=== PATIENT | female | born 1970 ===

== ENCOUNTER 2017-01-27 15:05 | Emergency (ER) | payer MEDICAID, OTHER ==
[2017-01-27 15:05] VITALS: BMI 32.6
[2017-01-27 15:15] VITALS: BP 130/76; PULSE 88; RESP 18; TEMP 98; O2SAT 99
--- NOTE | 2017-01-27 15:25 | ED PDOC ---
Upper Extremity Pain/Injury Time Seen by Provider: 01/27/17 15:17 Chief Complaint (Nursing): Upper Extremity Problem/Injury Chief Complaint (Provider): Shoulder pain History Per: Patient History/Exam Limitations: no limitations Onset/Duration Of Symptoms: Days (x1 week) Current Symptoms Are (Timing): Still Present Additional Complaint(s): 46 y/o right hand dominant female presents to the emergency department with a complaint of a right shoulder pain x1 week. Patient states she was lifting a heavy bag and felt sharp pain to right shoulder last week. She did not seek medical attention at time of injury and presents today with persistent pain to right shoulder. She reports taking Naprosyn and Motrin which helped minimally with pain. She denies any numbness or tingling to affected area and she also denies any associated chest pain, shortness of breath and dyspnea on exertion. PMD: Dr. Salima Sharpe at [facility] Past Medical History Reviewed: Historical Data, Nursing Documentation, Vital Signs Vital Signs: Last Vital Signs Temp 98 F 01/27/17 15:13 Pulse 88 01/27/17 15:13 Resp 18 01/27/17 15:13 BP 130/76 01/27/17 15:13 Pulse Ox 99 01/27/17 15:13 - Medical History PMH: Anemia (iron def, anemia), Hypothyroidism, Seizures (2004; TAKES NO MED.; CAUSE UNKNOWN) - Surgical History Surgical History: Back Surgery, Endoscopy (6 YRS. AGO) Other surgeries: Total thyroidectomy, right knee surgery x 2, left knee surgery x 1 - Family History Family History: States: No Known Family Hx - Living Arrangements Living Arrangements: With Family - Social History Current smoker - smoking cessation education provided: No Alcohol: None Drugs: Denies - Home Medications Home Medications: Ambulatory Orders Medication Instructions Recorded Atenolol 09/14/16 oxyCODONE/Acetaminophen [Percocet 1 tab PO QID PRN #14 tab 09/14/16 5/325 mg Tab] Metaxalone [Skelaxin] 800 mg PO TID PRN #15 tablet 01/27/17 Nabumetone [Relafen] 500 mg PO BID #20 tab 01/27/17 traMADol [Ultram] 50 mg PO TID PRN #15 tab 01/27/17 - Allergies Allergies/Adverse Reactions: Allergies Allergy/AdvReac Type Severity Reaction Status Date / Time hydromorphone HCl Allergy SHORTNESS Verified 01/27/17 15:13 [From Dilaudid] OF BREATH Review of Systems ROS Statement: Except As Marked, All Systems Reviewed And Found Negative Constitutional: Negative for: Fever Cardiovascular: Negative for: Chest Pain Musculoskeletal: Positive for: Shoulder Pain (Right) Neurological: Negative for: Numbness (or tingling.) Physical Exam - Reviewed Nursing Documentation Reviewed: Yes Vital Signs Reviewed: Yes - Physical Exam Appears: Positive for: Well, Non-toxic, No Acute Distress Head Exam: Positive for: ATRAUMATIC, NORMAL INSPECTION, NORMOCEPHALIC Skin: Positive for: Normal Color. Negative for: Rash Eye Exam: Positive for: Normal appearance Neck: Positive for: Painless ROM. Negative for: Pain On Movement Of Neck Cardiovascular/Chest: Positive for: Regular Rate, Rhythm Respiratory: Positive for: Normal Breath Sounds. 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 ). Negative for: Deformity, Swelling Neurologic/Psych: Positive for: Alert, Oriented - ECG O2 Sat by Pulse Oximetry: 99 (RA) Pulse Ox Interpretation: Normal - Other Rad Right shoulder x-ray X-Ray: Interpreted by Me, Viewed By Me X-Ray Interpretation: no fx, no dis Medical Decision Making Medical Decision Making: Time: 15:17 Initial Impression: Right shoulder pain Initial Plan: --Toradol 30 mg IM --Shoulder Right (RAD) --Reevaluation Patient reports mild improvement to pain after toradol was given. X-ray negative for fracture or dislocation, sling applied to right arm. Rx tramadol, relafen and skelaxin given. Rx history reviewed on [facility] website and patient has not filled rx for narcotic pain meds since May 2016. Patient was instructed to follow up with PMD or with ortho in 2-3 days. Ortho referral provided. Scribe Attestation: Documented by Telma Reeder, acting as a scribe for Kristy Rascon PA-C. Provider Scribe Attestation: All medical record entries made by the Scribe were at my direction and personally dictated by me. I have reviewed the chart and agree that the record accurately reflects my personal performance of the history, physical exam, medical decision making, and the department course for this patient. I have also personally directed, reviewed, and agree with the discharge instructions and disposition. Procedures - Splinting Location: right arm Pre-Made Type: sling Pre-Proc Neuro Vasc Exam: normal Post-Proc Neuro Vasc Exam: normal Disposition - Clinical Impression Clinical Impression: Shoulder sprain - Patient ED Disposition Is Patient to be Admitted: No Counseled Patient/Family Regarding: Studies Performed, Diagnosis, Need For Followup, Rx Given - Disposition Referrals: Hardeep Rdz MD [Staff Provider] - Disposition: Routine/Home Disposition Time: 16:03 Condition: STABLE Additional Instructions: Ice and rest the affected area. Take prescription meds as directed as needed for pain. Follow-up with orthopedist or primary care doctor for further evaluation. Prescriptions: Metaxalone [Skelaxin] 800 mg PO TID PRN #15 tablet PRN Reason: Muscle Pain Nabumetone [Relafen] 500 mg PO BID #20 tab traMADol [Ultram] 50 mg PO TID PRN #15 tab PRN Reason: Pain, Moderate (4-7) Instructions: Shoulder Sprain (ED)
--- NOTE | 2017-01-27 15:58 | RAD ---
PROCEDURE: Radiographs of the Right Shoulder HISTORY: trauma COMPARISON: No prior. FINDINGS: BONES: Normal. No fracture. JOINTS: Preserved glenohumeral relationship, acromioclavicular degenerative change: Mild SOFT TISSUES: Normal. OTHER FINDINGS: None. IMPRESSION: No acute findings related to/accounting for the clinical presentation. Concordant results with the preliminary interpretation rendered by the emergency department physician procedure.
== END 2017-01-27 16:17 | disposition home or self-care (01) ==
LOC: H.ER 15:05
DX: S43.401A Unspecified sprain of right shoulder joint, initial encounter (principal); X50.0XXA Overexertion from strenuous movement or load, initial encounter; Y92.89 Other specified places as the place of occurrence of the external cause

== ENCOUNTER 2017-05-11 21:54 | Emergency (ER) | payer OTHER, MEDICAID ==
[2017-05-11 21:55] VITALS: BMI 32.6
[2017-05-11 22:07] VITALS: BP 144/88; PULSE 98; RESP 16; TEMP 98.4; O2SAT 100
--- NOTE | 2017-05-11 22:42 | ED PDOC ---
Lower Extremity Pain/Injury Time Seen by Provider: 05/11/17 22:05 Chief Complaint (Nursing): Lower Extremity Problem/Injury Chief Complaint (Provider): left foot and ankle pain History Per: Patient Additional Complaint(s): 46-year-old female presents to emergency Department with left foot and ankle pain status post twisting injury. Patient able to bear weight but has pain when doing so. Patient states that injury occurred while she was at work this evening. She denies numbness or tingling to affected area. Past Medical History Reviewed: Historical Data, Nursing Documentation, Vital Signs Vital Signs: Last Vital Signs Temp 98.4 F 05/11/17 22:01 Pulse 98 H 05/11/17 22:01 Resp 16 05/11/17 22:01 BP 144/88 05/11/17 22:01 Pulse Ox 100 05/11/17 22:01 - Medical History PMH: Anemia (iron def, anemia), Diabetes ("borderline"), Hyperthyroidism ( "borderline"), Seizures (2004; TAKES NO MED.; CAUSE UNKNOWN) Other PMH: Lupus - Surgical History Surgical History: Back Surgery, Endoscopy (6 YRS. AGO) - Family History Family History: States: No Known Family Hx - Social History Current smoker - smoking cessation education provided: No Alcohol: Social Drugs: Denies - Home Medications Home Medications: Ambulatory Orders Medication Instructions Recorded Atenolol 09/14/16 oxyCODONE/Acetaminophen [Percocet 1 tab PO QID PRN #14 tab 09/14/16 5/325 mg Tab] Metaxalone [Skelaxin] 800 mg PO TID PRN #15 tablet 01/27/17 Nabumetone [Relafen] 500 mg PO BID #20 tab 01/27/17 traMADol [Ultram] 50 mg PO TID PRN #15 tab 01/27/17 - Allergies Allergies/Adverse Reactions: Allergies Allergy/AdvReac Type Severity Reaction Status Date / Time hydromorphone HCl Allergy SHORTNESS Verified 05/11/17 22:01 [From Dilaudid] OF BREATH Review of Systems ROS Statement: Except As Marked, All Systems Reviewed And Found Negative Musculoskeletal: Positive for: Other (Left foot and ankle injury) Physical Exam - Reviewed Nursing Documentation Reviewed: Yes Vital Signs Reviewed: Yes - Physical Exam Appears: Positive for: Well Skin: Negative for: Rash Eye Exam: Positive for: Normal appearance Extremity: Positive for: Other (Mild tenderness to medial aspect of the left foot as well as lateral malleolus of left ankle, no obvious bony deformity, palpable DP pulse, normal distal sensation, normal capillary refill) Neurologic/Psych: Positive for: Alert, Oriented - ECG O2 Sat by Pulse Oximetry: 100 Pulse Ox Interpretation: Normal - Other Rad Left foot and ankle x-ray X-Ray: Interpreted by Me, Viewed By Me X-Ray Interpretation: no fx, no dis Medical Decision Making Medical Decision Makin46 year old with left foot and ankle pain Plan: Pain meds declined X-ray left foot and ankle Patient aware of x-ray results. Cultures were declined. Robert wrap, Aircast and orthopedic shoe applied to left foot and ankle, neurovascularly intact status post placement. Patient given RICE instructions and advised to take NSAIDs for pain as needed, she was referred to podiatry on-call for follow-up. Disposition - Clinical Impression Clinical Impression: Ankle sprain, Foot sprain - Patient ED Disposition Is Patient to be Admitted: No Counseled Patient/Family Regarding: Studies Performed, Diagnosis, Need For Followup - Disposition Referrals: Baudilio Monaco DPM [Doctor Pod[facility]] - Disposition: Routine/Home Disposition Time: 23:02 Condition: STABLE Additional Instructions: Ice and elevate affected area. Tylenol or Advil for pain as needed. 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 Instructions: Foot Sprain (ED), Ankle Sprain (ED), Ankle Stirrup Splint (ED) Forms: [employer] (Japanese), [facility] ED School/Work Excuse
--- NOTE | 2017-05-12 11:52 | RAD ---
PROCEDURE: Left Ankle Radiographs. HISTORY: Trauma. Anatomic area of interest: Lateral malleolar region. COMPARISON: None FINDINGS: BONES: Normal. No fracture. JOINTS: Normal. No osteoarthritis. Ankle mortise maintained. Talar dome intact SOFT TISSUES: Normal. OTHER FINDINGS: None. IMPRESSION: No acute findings related to/accounting for the clinical presentation. No preliminary report provided by emergency department personnel.
--- NOTE | 2017-05-12 12:15 | RAD ---
PROCEDURE: Left Foot Radiographs. HISTORY: trauma COMPARISON: None. FINDINGS: BONES: Normal. No fracture. JOINTS: Normal. SOFT TISSUES: Normal. OTHER FINDINGS: None. IMPRESSION: Normal left foot radiographs.
== END 2017-05-11 23:06 | disposition home or self-care (01) ==
LOC: H.ER 21:54
DX: S93.402A Sprain of unspecified ligament of left ankle, initial encounter (principal); X50.9XXA Other and unspecified overexertion or strenuous movements or postures, initial encounter; Y92.89 Other specified places as the place of occurrence of the external cause

== ENCOUNTER 2017-09-24 18:46 | Emergency (ER) | payer MEDICAID, OTHER ==
[2017-09-24 19:08] VITALS: BMI 33.4
[2017-09-24 19:12] VITALS: BP 148/89; PULSE 96; RESP 16; TEMP 98.5; O2SAT 99
[2017-09-24] MEDS ORDERED: Sodium Chloride 0.9% 1,000 ML IV STA (20:00)
--- NOTE | 2017-09-24 20:59 | ED PDOC ---
HPI: Abdomen Time Seen by Provider: 09/24/17 19:48 Chief Complaint (Nursing): Abdominal Pain Chief Complaint (Provider): abdominal pain History Per: Patient History/Exam Limitations: no limitations Onset/Duration Of Symptoms: Sudden Onset Current Symptoms Are (Timing): Still Present Additional Complaint(s): 47 year old female with medical history of colitis, who presents to the emergency department with a complaint of sudden onset of left lower abdominal pain radiating to right upper abdomen. Denied any fever, chills, nausea, vomiting, diarrhea, constipation, difficulty urinating, bloody urine or incontinence, vaginal bleeding. PMD: Gray Bradley MD Past Medical History Reviewed: Historical Data, Nursing Documentation, Vital Signs Vital Signs: Last Vital Signs Temp 98.5 F 09/24/17 19:09 Pulse 96 H 09/24/17 19:09 Resp 16 09/24/17 19:09 BP 148/89 09/24/17 19:09 Pulse Ox 99 09/24/17 23:59 - Medical History PMH: Anemia (iron def, anemia), Bronchitis (2013), Colonic Polyps, Diabetes ("borderline"), Hyperthyroidism ("borderline"), Hypothyroidism, Seizures (2004; TAKES NO MED.; CAUSE UNKNOWN) Denies: Chronic Kidney Disease - Surgical History Surgical History: Back Surgery, Endoscopy (6 YRS. AGO) - Family History Family History: States: Unknown Family Hx - Social History Current smoker - smoking cessation education provided: No Alcohol: None Drugs: Denies - Immunization History Hx Tetanus Toxoid Vaccination: No Hx Influenza Vaccination: No Hx Pneumococcal Vaccination: No - Home Medications Home Medications: Ambulatory Orders Medication Instructions Recorded Atenolol 09/14/16 oxyCODONE/Acetaminophen [Percocet 1 tab PO QID PRN #14 tab 09/14/16 5/325 mg Tab] Metaxalone [Skelaxin] 800 mg PO TID PRN #15 tablet 01/27/17 Nabumetone [Relafen] 500 mg PO BID #20 tab 01/27/17 traMADol [Ultram] 50 mg PO TID PRN #15 tab 01/27/17 Naproxen [Naprosyn] 500 mg PO BID PRN #30 tab 09/24/17 - Allergies Allergies/Adverse Reactions: Allergies Allergy/AdvReac Type Severity Reaction Status Date / Time hydromorphone HCl Allergy SHORTNESS Verified 09/24/17 19:08 [From Dilaudid] OF BREATH Review of Systems ROS Statement: Except As Marked, All Systems Reviewed And Found Negative Constitutional: Negative for: Fever, Chills Gastrointestinal: Positive for: Abdominal Pain (LLQ > RUQ). Negative for: Nausea, Vomiting, Diarrhea, Constipation Genitourinary Female: Negative for: Dysuria, Incontinence, Hematuria Physical Exam - Reviewed Nursing Documentation Reviewed: Yes Vital Signs Reviewed: Yes - Physical Exam Appears: Positive for: Non-toxic, No Acute Distress Respiratory: Positive for: Normal Breath Sounds. Negative for: Decreased Breath Sounds, Respiratory Distress Gastrointestinal/Abdominal: Positive for: Tenderness (LLQ moderately; LUQ minimally). Negative for: Normal Exam, Other (RUQ tenderness, ecchymosis or Armendariz's sign present) Neurologic/Psych: Positive for: Alert, Oriented - Laboratory Results Result Diagrams: 09/24/17 21:17 09/24/17 21:17 - ECG O2 Sat by Pulse Oximetry: 99 (RA) Pulse Ox Interpretation: Normal - Progress ED Course And Treament: CT abd/pelvis w/ IV contrast: 1. Involuting or ruptured LEFT ovarian follicle/ cyst. 2. Apparent dilatation of common bile duct. Suggest ultrasound Case d/w Dr. Gloria who states pt. can f/u with ACCOUNTING OFFICE MANAGER and PMD for further testing. On re-evaluation, pt. reports good improvement in pain. Lab and imaging results d/w patient. Instructed to f/u with ACCOUNTING OFFICE MANAGER for ovarian cyst and with PMD for outpatient RUQ US but is to return to ED immediately if symptoms worsen. Pt. verbalized understanding of necessary f/u to PA. Medical Decision Making Medical Decision Making: Initial Impression: Abdominal pain Initial Plan: * CT ABD/pelvis with IV contrast * CMP * Lipase * Urine * CBC * NS 1,000ml IV per 1,000mls/hr * Toradol 30mg IVP * Blood culture * UA Scribe Attestation: Documented by Bere Mcbride, acting as a scribe for Ganesh Rose PA-C. Provider Scribe Attestation: All medical record entries made by the Scribe were at my direction and personally dictated by me. I have reviewed the chart and agree that the record accurately reflects my personal performance of the history, physical exam, medical decision making, and the department course for this patient. I have also personally directed, reviewed, and agree with the discharge instructions and disposition. Disposition - Clinical Impression Clinical Impression: Ovarian cyst, Common bile duct dilatation - Patient ED Disposition Is Patient to be Admitted: No - Disposition [facility] [Outside] Disposition: Routine/Home Disposition Time: 23:22 Condition: STABLE Additional Instructions: Follow up with ACCOUNTING OFFICE MANAGER and PMD for further evaluation. Return to ED immediately if symptoms persist or worsen. Prescriptions: Naproxen [Naprosyn] 500 mg PO BID PRN #30 tab PRN Reason: Pain Instructions: Ovarian Cyst (ED) Forms: [employer] (Somali) Print Language: [place]
[2017-09-24] MEDS ORDERED: Sodium Chloride 0.9% 50 ML IV ONE (21:10)
[2017-09-24] MEDS ORDERED: Iohexol 300 100 ML IJ ONE (21:10)
[2017-09-24 21:21] LABS: BASO # 0.2 K/uL (0.0-0.2); BASO % 1.2 % (0.0-2.0); EOS # 0.1 K/uL (0.0-0.7); EOS % 0.8 % (0.0-4.0); HEMOGLOBIN 13.2 g/dL (12.0-16.0); LYMPH # 3.6 K/uL (1.0-4.3); LYMPH % 26.8 % (20.0-40.0); MEAN CELL VOLUME 81.8 fl (81.0-99.0); MEAN CORPUSCULAR HEMOGLOBIN 26.2 pg (27.0-31.0); MEAN PLATELET VOLUME 8.7 fl (7.2-11.7); MONO # 0.9 K/uL (0.0-0.8); MONO % 6.8 % (0.0-10.0); NEUT # 8.7 K/uL (1.8-7.0); NEUT % 64.4 % (50.0-75.0); NRBC % 0.1 % (0.0-0.0); RBC 5.02 Mil/uL (3.80-5.20); RED CELL DISTRIBUTION WIDTH 16.5 % (11.5-14.5); WHITE BLOOD COUNT 13.5 K/uL (4.8-10.8)
[2017-09-24 21:35] LABS: ALB/GLOB RATIO 1.4 (1.0-2.1); ALBUMIN 4.2 g/dL (3.5-5.0); ALT/SGPT 32 U/L (9-52); AST/SGOT 21 U/L (14-36); BLOOD UREA NITROGEN 11 mg/dl (7-17); CALCIUM 9.2 mg/dL (8.4-10.2); GFR AFRICAN-AMERICAN > 60; GFR NON-AFRICAN AMERICAN > 60; LIPASE 24 U/L (23-300)
[2017-09-24 21:45] LABS: URINE BILIRUBIN NEGATIVE (NEGATIVE); URINE CLARITY CLEAR (Clear); URINE COLOR YELLOW (YELLOW); URINE GLUCOSE (UA) NEG (Normal)
[2017-09-24 21:46] LABS: PH,URINE 5.5 (5.0-8.0); SQUAMOUS EPITHIAL 1 /hpf (0-5); URINE BACTERIA RARE (<OCC); URINE BLOOD NEGATIVE (NEGATIVE); URINE LEUKOCYTE ESTERASE NEG Leu/uL (Negative); URINE NITRATE NEGATIVE (NEGATIVE); URINE PROTEIN NEGATIVE (NEGATIVE); URINE UROBILINOGEN 0.2 mg/dL (0.2-1.0)
--- NOTE | 2017-09-24 23:07 | CT ---
EXAM: CT Abdomen and Pelvis With Intravenous Contrast CLINICAL HISTORY: 47 years old, female; Pain; Abdominal pain; Localized; Other: Lt to right pain; Additional info: L sided abdominal pain TECHNIQUE: Axial computed tomography images of the abdomen and pelvis with intravenous contrast. All CT scans at this facility use one or more dose reduction techniques, viz.: automated exposure control; ma/kV adjustment per patient size (including targeted exams where dose is matched to indication; i.e. head); or iterative reconstruction technique. Coronal and sagittal reformatted images were created and reviewed. CONTRAST: 95 mL of [id number] administered intravenously. COMPARISON: No relevant prior studies available. FINDINGS: Lower thorax: No acute findings. ABDOMEN: Liver: Fatty infiltration. Small calcification. Gallbladder and bile ducts: No calcified gallstones. Apparent dilatation of common bile duct, up to 1.0 cm. Pancreas: No ductal dilation. No mass. Spleen: Mild splenomegaly, AP dimension. Adrenals: No mass. Kidneys and ureters: No hydronephrosis. No mass. No hydronephrosis. Stomach and bowel: No definite mural thickening. No obstruction. Appendix: Normal caliber. No definite inflammation. PELVIS: Bladder: Unremarkable. Reproductive: 1.0 x 1.1 by 1.3 cm peripherally enhancing hypodensity with crenulated margins within LEFT ovary. ABDOMEN and PELVIS: Intraperitoneal space: No significant fluid collection. No free air. Bones/joints: Postsurgical changes of lumbar spine. Early degenerative changes of spine. No acute fracture. Soft tissues: Small umbilical hernia containing fat. Vasculature: Circumaortic LEFT renal vein. No aneurysm. Lymph nodes: No pathologically enlarged lymph nodes. IMPRESSION: 1. Involuting or ruptured LEFT ovarian follicle/cyst. 2. Apparent dilatation of common bile duct. Suggest ultrasound. 3. Incidental/non-acute findings are described above.
== END 2017-09-24 23:30 | disposition home or self-care (01) ==
LOC: H.ER 18:46
DX: N83.202 Unspecified ovarian cyst, left side (principal); E03.9 Hypothyroidism, unspecified; E05.90 Thyrotoxicosis, unspecified without thyrotoxic crisis or storm
CPT/HCPCS: 74177; 80053; 81003; 81025; 83690; 85025; 87040; 96374; 99283; J1885; J7040; Q9967

== ENCOUNTER 2018-07-04 11:34 | Emergency (ER) | payer BC, MEDICAID, OTHER ==
[2018-07-04 11:34] VITALS: BMI 33.4
[2018-07-04 11:46] VITALS: RESP 18; TEMP 97.7
[2018-07-04] MEDS ORDERED: Sodium Chloride 0.9% 500 ML IV STA (13:10)
[2018-07-04 13:18] LABS: BASO # 0.1 K/uL (0.0-0.2); BASO % 0.8 % (0.0-2.0); EOS # 0.1 K/uL (0.0-0.7); EOS % 0.7 % (0.0-4.0); HEMOGLOBIN 12.7 g/dL (12.0-16.0); LYMPH # 2.4 K/uL (1.0-4.3); MEAN CELL VOLUME 80.9 fl (81.0-99.0); MEAN CORPUSCULAR HEMOGLOBIN 25.6 pg (27.0-31.0); MEAN CORPUSCULAR HGB CONC 31.6 g/dL (33.0-37.0); MEAN PLATELET VOLUME 8.8 fl (7.2-11.7); MONO # 0.7 K/uL (0.0-0.8); MONO % 6.5 % (0.0-10.0); NEUT # 6.9 K/uL (1.8-7.0); NRBC % 0.1 % (0.0-0.0); RBC 4.99 Mil/uL (3.80-5.20); RED CELL DISTRIBUTION WIDTH 19.3 % (11.5-14.5); SQUAMOUS EPITHIAL 3 /hpf (0-5); URINE BILIRUBIN NEGATIVE (NEGATIVE); URINE BLOOD NEGATIVE (NEGATIVE); URINE CLARITY CLOUDY (Clear); URINE COLOR YELLOW (YELLOW); URINE GLUCOSE (UA) NEG (Normal); URINE LEUKOCYTE ESTERASE NEG Leu/uL (Negative); URINE PROTEIN NEGATIVE (NEGATIVE); WHITE BLOOD COUNT 10.1 K/uL (4.8-10.8)
--- NOTE | 2018-07-04 13:22 | ED PDOC ---
HPI: General Adult Time Seen by Provider: 07/04/18 12:06 Chief Complaint (Nursing): Dizziness/Lightheaded Chief Complaint (Provider): Dizziness History Per: Patient History/Exam Limitations: no limitations Additional Complaint(s): Pt reports lightheadedness since this AM. Pt had thyroidectomy on 06/23/18 secondary to thyroid CA. Denies fever, TREVIZO, visual changes, paresthesias, weakness. Take Synthroid 150 mcg daily. Past Medical History Reviewed: Nursing Documentation, Vital Signs Vital Signs: Last Vital Signs Temp 97.7 F 07/04/18 11:46 Pulse 87 07/04/18 11:46 Resp 18 07/04/18 11:46 BP 158/105 H 07/04/18 11:46 Pulse Ox 100 07/04/18 11:46 - Medical History PMH: Anemia (iron def, anemia), Bronchitis (2013), Colonic Polyps, Diabetes ("borderline"), Hyperthyroidism ("borderline"), Hypothyroidism, Malignancy (Thyroid), Seizures (2004; TAKES NO MED.; CAUSE UNKNOWN) Denies: Chronic Kidney Disease - Surgical History Surgical History: Back Surgery, Endoscopy (6 YRS. AGO) Other surgeries: Thyroidectomy - Family History Family History: States: Unknown Family Hx - Social History Current smoker - smoking cessation education provided: No Alcohol: None - Immunization History Hx Tetanus Toxoid Vaccination: No Hx Influenza Vaccination: Yes Hx Pneumococcal Vaccination: No - Home Medications Home Medications: Ambulatory Orders Medication Instructions Recorded Ciprofloxacin [Cipro] 1 tab PO BID #14 tab 12/24/17 Phentermine HCl 1 tab DAILY 12/24/17 Meclizine [Meclizine*] 25 mg PO Q6 PRN #20 tab 07/04/18 - Allergies Allergies/Adverse Reactions: Allergies Allergy/AdvReac Type Severity Reaction Status Date / Time ciprofloxacin [From Cipro] Allergy ANAPHYLAXIS Verified 07/04/18 11:58 hydromorphone HCl Allergy SHORTNESS Verified 07/04/18 11:58 [From Dilaudid] OF BREATH Review of Systems Constitutional: Negative for: Fever, Chills Eyes: Negative for: Vision Change Cardiovascular: Negative for: Chest Pain, Palpitations Respiratory: Negative for: Cough, Shortness of Breath Gastrointestinal: Positive for: Abdominal Pain. Negative for: Nausea, Vomiting, Diarrhea Genitourinary Female: Negative for: Dysuria, Hematuria Musculoskeletal: Negative for: Back Pain Skin: Negative for: Rash, Lesions Neurological: Positive for: Dizziness. Negative for: Weakness, Numbness, Incoordination, Change in Speech, Confusion, Seizures, Altered Mental Status, Headache Physical Exam - Reviewed Nursing Documentation Reviewed: Yes Vital Signs Reviewed: Yes - Physical Exam Appears: Positive for: Well, No Acute Distress Head Exam: Positive for: ATRAUMATIC, NORMAL INSPECTION Skin: Positive for: Normal Color, Warm, Dry Eye Exam: Positive for: Normal appearance, EOMI, PERRL Cardiovascular/Chest: Positive for: Regular Rate, Rhythm Respiratory: Positive for: Normal Breath Sounds. Negative for: Rales, Rhonchi, Wheezing Gastrointestinal/Abdominal: Positive for: Bowel Sounds, Soft, Tenderness (Minimal L). Negative for: Distended, Guarding, Rebound Back: Positive for: Normal Inspection Extremity: Positive for: Normal ROM Neurologic/Psych: Positive for: Alert, fountain helper II-XII, Oriented. Negative for: Motor/Sensory Deficits, Aphasia, Facial Droop - Laboratory Results Result Diagrams: 07/04/18 13:00 07/04/18 13:00 - ECG Interpretation Of ECG: NSR @ 69, no ST-T changes. O2 Sat by Pulse Oximetry: 100 Pulse Ox Interpretation: Normal - Physician Consult Information Time Consulting Physican Contacted: 16:06 Physician Contacted: Bere Coleman Outcome Of Conversation: Case discussed, states the lower the TSH the better in context of thyroid CA, recommends no change in Synthroid. Medical Decision Making Medical Decision Makin yo female with dizziness. - labs - EKG - CXR - IVF - orthostatics Accession No. : [id number] Patient Name / ID : AUSTIN ANDERSEN / [id number] Exam Date : 07/04/2018 15:18:31 ( Approved ) Study Comment : Sex / Age : F / 47Y Creator : Jose Valenzuela MD Dictator : Jose Valenzuela MD Burglary Investigator : Dormitory Supervisor : Jose Valenzuela MD Approver2 : Report Date : 07/04/2018 15:42:44 My Comment : Date of service: 07/04/2018 PROCEDURE: CT HEAD WITHOUT CONTRAST. HISTORY: Dizziness COMPARISON: None available. TECHNIQUE: Axial computed tomography images were obtained through the head/brain without intravenous contrast. Supplemental Coronal and Sagittal projections created and reviewed. Radiation dose: Total exam DLP = 896.40 mGy-cm. This CT exam was performed using one or more of the following dose reduction techniques: Automated exposure control, adjustment of the mA and/or kV according to patient size, and/or use of iterative reconstruction technique. FINDINGS: HEMORRHAGE: No intracranial hemorrhage. BRAIN: No mass effect or edema. No atrophy or chronic microvascular ischemic changes. VENTRICLES: Unremarkable. No hydrocephalus. CALVARIUM: Unremarkable. PARANASAL SINUSES: Unremarkable as visualized. No significant inflammatory changes. MASTOID AIR CELLS: Unremarkable as visualized. No inflammatory changes. OTHER FINDINGS: None. IMPRESSION: No acute intracranial abnormalities. No significant findings to account for the clinical presentation. Accession No. : [id number] Patient Name / ID : AUSTIN ANDERSEN / [id number] Exam Date : 07/04/2018 15:23:32 ( Approved ) Study Comment : Sex / Age : F / 47Y Creator : Jose Valenzuela MD Dictator : Jose Valenzuela MD Burglary Investigator : Dormitory Supervisor : Jose Valenzuela MD Approver2 : Report Date : 07/04/2018 15:47:11 My Comment : Date of service: 07/04/2018 PROCEDURE: CT Abdomen and Pelvis with contrast HISTORY: L sided abd pain COMPARISON: 09/24/2017. TECHNIQUE: Intravenous contrast dose: 95 cc Omnipaque 300. Radiation dose: Total exam DLP = 885.0 mGy-cm. This CT exam was performed using one or more of the following dose reduction techniques: Automated exposure control, adjustment of the mA and/or kV according to patient size, and/or use of iterative reconstruction technique. FINDINGS: LOWER THORAX: Unremarkable. LIVER: Unremarkable. No gross lesion or ductal dilatation. GALLBLADDER AND BILE DUCTS: Unremarkable. PANCREAS: Unremarkable. No gross lesion or ductal dilatation. SPLEEN: Unremarkable. ADRENALS: Unremarkable. No mass. KIDNEYS AND URETERS: Unremarkable. No hydronephrosis. No solid mass. VASCULATURE: Unremarkable. No aortic aneurysm. No atherosclerotic calcification or mural plaque present. BOWEL: Unremarkable. No obstruction. No gross mural thickening. APPENDIX: A normal appendix is visualized in it's entirety. PERITONEUM: Unremarkable. No free fluid. No free air. LYMPH NODES: Unremarkable. No enlarged lymph nodes. BLADDER: Unremarkable. REPRODUCTIVE: Unremarkable. BONES: No acute fracture. Stable position, configuration of orthopedic hardware L5-S1 region. OTHER FINDINGS: None. IMPRESSION: No significant or acute findings to account for/ related to the clinical presentation. No significant interval change compared to the prior examination (s). Pt able to ambulate without difficulty. Disposition - Clinical Impression Clinical Impression: Dizziness - Disposition Disposition: Routine/Home Disposition Time: 16:09 Condition: STABLE Additional Instructions: FOLLOW-UP WITH PMD WITHIN 2 DAYS FOR REEVALUATION. Prescriptions: Meclizine [Meclizine*] 25 mg PO Q6 PRN #20 tab PRN Reason: Dizziness Instructions: Dizziness, Nonvertigo, (DC) Forms: [employer] (Bengali)
[2018-07-04 13:36] LABS: ALB/GLOB RATIO 1.3 (1.0-2.1)
[2018-07-04 14:09] LABS: BLOOD UREA NITROGEN 13 mg/dl (7-17); CALCIUM 9.5 mg/dL (8.4-10.2); GFR NON-AFRICAN AMERICAN > 60
[2018-07-04 14:10] LABS: ALBUMIN 4.5 g/dL (3.5-5.0); ALT/SGPT 55 U/L (9-52); AST/SGOT 29 U/L (14-36)
[2018-07-04] MEDS ORDERED: Sodium Chloride 0.9% 50 ML IV ONE (15:03)
[2018-07-04] MEDS ORDERED: Iohexol 300 100 ML IJ ONE (15:03)
--- NOTE | 2018-07-04 15:46 | CT ---
Date of service: 07/04/2018 PROCEDURE: CT HEAD WITHOUT CONTRAST. HISTORY: Dizziness COMPARISON: None available. TECHNIQUE: Axial computed tomography images were obtained through the head/brain without intravenous contrast. Supplemental Coronal and Sagittal projections created and reviewed. Radiation dose: Total exam DLP = 896.40 mGy-cm. This CT exam was performed using one or more of the following dose reduction techniques: Automated exposure control, adjustment of the mA and/or kV according to patient size, and/or use of iterative reconstruction technique. FINDINGS: HEMORRHAGE: No intracranial hemorrhage. BRAIN: No mass effect or edema. No atrophy or chronic microvascular ischemic changes. VENTRICLES: Unremarkable. No hydrocephalus. CALVARIUM: Unremarkable. PARANASAL SINUSES: Unremarkable as visualized. No significant inflammatory changes. MASTOID AIR CELLS: Unremarkable as visualized. No inflammatory changes. OTHER FINDINGS: None. IMPRESSION: No acute intracranial abnormalities. No significant findings to account for the clinical presentation.
--- NOTE | 2018-07-04 15:50 | CT ---
Date of service: 07/04/2018 PROCEDURE: CT Abdomen and Pelvis with contrast HISTORY: L sided abd pain COMPARISON: 09/24/2017. TECHNIQUE: Intravenous contrast dose: 95 cc Omnipaque 300. Radiation dose: Total exam DLP = 885.0 mGy-cm. This CT exam was performed using one or more of the following dose reduction techniques: Automated exposure control, adjustment of the mA and/or kV according to patient size, and/or use of iterative reconstruction technique. FINDINGS: LOWER THORAX: Unremarkable. LIVER: Unremarkable. No gross lesion or ductal dilatation. GALLBLADDER AND BILE DUCTS: Unremarkable. PANCREAS: Unremarkable. No gross lesion or ductal dilatation. SPLEEN: Unremarkable. ADRENALS: Unremarkable. No mass. KIDNEYS AND URETERS: Unremarkable. No hydronephrosis. No solid mass. VASCULATURE: Unremarkable. No aortic aneurysm. No atherosclerotic calcification or mural plaque present. BOWEL: Unremarkable. No obstruction. No gross mural thickening. APPENDIX: A normal appendix is visualized in it's entirety. PERITONEUM: Unremarkable. No free fluid. No free air. LYMPH NODES: Unremarkable. No enlarged lymph nodes. BLADDER: Unremarkable. REPRODUCTIVE: Unremarkable. BONES: No acute fracture. Stable position, configuration of orthopedic hardware L5-S1 region. OTHER FINDINGS: None. IMPRESSION: No significant or acute findings to account for/ related to the clinical presentation. No significant interval change compared to the prior examination(s).
--- NOTE | 2018-07-04 16:18 | CARD ---
APPROVED REPORT Date of service: 07/04/2018 EKG Measurement Heart [id number] OR 168P4 [id number] <Conclusion> Normal sinus rhythm Minimal voltage criteria for LVH, may be normal variant Borderline ECG
[2018-07-05 01:10] VITALS: BP 137/84; PULSE 80
[2018-07-06 10:31] VITALS: O2SAT 100
== END 2018-07-04 18:00 | disposition home or self-care (01) ==
LOC: H.ER 11:34
DX: R42 Dizziness and giddiness (principal); C73 Malignant neoplasm of thyroid gland; E03.9 Hypothyroidism, unspecified; E05.90 Thyrotoxicosis, unspecified without thyrotoxic crisis or storm
CPT/HCPCS: 70450; 74177; 80053; 81003; 81025; 84443; 85025; 93005; 99284; J7030; Q9967

== ENCOUNTER 2018-10-16 08:28 | Emergency (ER) | payer BC, MEDICAID, OTHER ==
[2018-10-16 08:28] VITALS: BMI 33.4
--- NOTE | 2018-10-16 09:11 | ED PDOC ---
HPI: General Adult Time Seen by Provider: 10/16/18 08:44 Chief Complaint (Nursing): Dizziness/Lightheaded Chief Complaint (Provider): Dizziness/Lightheaded History Per: Patient History/Exam Limitations: no limitations Onset/Duration Of Symptoms: Days (x2) Additional Complaint(s): Patient is a 48 y/o female with a PMHx of diabetes, vertigo, anemia, bronchitis, colonic polyps, CHF, hyperthyroidism, hypothyroidism, malignancy, and seizures who presents to the ED for evaluation dizziness ongoing for the past two days. Patient states she woke up this morning feeling dizzy and with palpitations after sleeping on her chest, thus, prompting her ED visit. Patient states her dizziness is exacerbated by laying on her back claiming she feels like the "room is spinning." In addition, patient admits to headaches and nausea. Patient denies loss of appetite, vomiting, and diarrhea. PCP: None Provided Past Medical History Reviewed: Historical Data, Nursing Documentation, Vital Signs Vital Signs: Last Vital Signs Temp 98.4 F 10/16/18 08:29 Pulse 59 L 10/16/18 08:29 Resp 18 10/16/18 08:29 BP 120/85 10/16/18 08:29 Pulse Ox 100 10/16/18 08:29 - Medical History PMH: Anemia (iron def, anemia), Bronchitis (2013), CHF, Colonic Polyps, Diabetes ("borderline"), Hyperthyroidism ("borderline"), Hypothyroidism, Malignancy (Thyroid), Seizures (after anesthesia) Denies: Chronic Kidney Disease - Surgical History Surgical History: Back Surgery, Endoscopy (6 YRS. AGO) - Family History Family History: States: Unknown Family Hx - Social History Current smoker - smoking cessation education provided: No Alcohol: Social Drugs: Denies - Immunization History Hx Tetanus Toxoid Vaccination: No Hx Influenza Vaccination: Yes Hx Pneumococcal Vaccination: No - Home Medications Home Medications: Ambulatory Orders Medication Instructions Recorded Levothyroxine [Synthroid] 150 mcg PO DAILY 08/26/18 Acetaminophen [Tylenol 325mg tab] 650 mg PO Q6 PRN tab 08/30/18 Aspirin [Ecotrin] 81 mg PO DAILY #30 tabec 08/30/18 Carvedilol [Coreg] 3.125 mg PO BID #60 tab 08/30/18 Losartan [Cozaar] 25 mg PO DAILY #30 tab 08/30/18 Rosuvastatin Calcium [Crestor] 20 mg PO HS #30 tab 08/30/18 - Allergies Allergies/Adverse Reactions: Allergies Allergy/AdvReac Type Severity Reaction Status Date / Time ciprofloxacin [From Cipro] Allergy ANAPHYLAXIS Verified 08/26/18 22:03 hydromorphone HCl Allergy SHORTNESS Verified 08/26/18 22:03 [From Dilaudid] OF BREATH Review of Systems ROS Statement: Except As Marked, All Systems Reviewed And Found Negative Constitutional: Negative for: Other (loss of appetite) Cardiovascular: Positive for: Chest Pain, Palpitations Gastrointestinal: Positive for: Nausea. Negative for: Vomiting, Diarrhea Neurological: Positive for: Dizziness Physical Exam - Reviewed Nursing Documentation Reviewed: Yes Vital Signs Reviewed: Yes - Physical Exam Appears: Positive for: No Acute Distress Head Exam: Positive for: ATRAUMATIC, NORMAL INSPECTION, NORMOCEPHALIC Skin: Positive for: Normal Color, Warm, Dry Eye Exam: Positive for: EOMI, Normal appearance, PERRL Neck: Positive for: Normal, Painless ROM, Supple Cardiovascular/Chest: Positive for: Regular Rate, Rhythm. Negative for: Murmur Respiratory: Positive for: Normal Breath Sounds. Negative for: Respiratory Distress Pulses-Radial (R): 2+ Gastrointestinal/Abdominal: Positive for: Normal Exam, Soft. Negative for: Tenderness Extremity: Positive for: Normal ROM. Negative for: Pedal Edema, Deformity Neurologic/Psych: Positive for: Alert, Oriented - Laboratory Results Result Diagrams: 10/16/18 09:21 10/16/18 09:21 - ECG ECG Rhythm: Positive for: Normal QRS, Normal ST Segment, Sinus Bradycardia Rate: 51 O2 Sat by Pulse Oximetry: 100 (RA) Pulse Ox Interpretation: Normal - Progress Re-evaluation Time: 10:45 Condition: Improved Medical Decision Making Medical Decision Making: Time: 0838 Impression: Acute headache with dizziness DDx includes but not limited to headache, positional vertigo, and dehydration. Plan: EKG Glucose, POC Routine CT Head w/o Contrast CMP Urine CBC Reglan 10mg IV IV Insertion Time: 940 CT Head FINDINGS: HEMORRHAGE: No intracranial hemorrhage. BRAIN: No mass effect or edema. No atrophy or chronic microvascular ischemic changes. VENTRICLES: Unremarkable. No hydrocephalus. CALVARIUM: Unremarkable. PARANASAL SINUSES: Unremarkable as visualized. No significant inflammatory changes. MASTOID AIR CELLS: Unremarkable as visualized. No inflammatory changes. OTHER FINDINGS: None. IMPRESSION: No acute intracranial pathology. Scribe Attestation: Documented by Amado Shaw, acting as a scribe for Taina Alvarez MD. Provider Scribe Attestation: All medical record entries made by the Scribe were at my direction and personally dictated by me. I have reviewed the chart and agree that the record accurately reflects my personal performance of the history, physical exam, medical decision making, and the department course for this patient. I have also personally directed, reviewed, and agree with the discharge instructions and disposition. Disposition - Clinical Impression Clinical Impression: Dizziness - Patient ED Disposition Is Patient to be Admitted: No Doctor Will See Patient In The: Office Counseled Patient/Family Regarding: Diagnosis, Need For Followup - Disposition Disposition: Routine/Home Disposition Time: 10:45 Condition: STABLE Instructions: Vertigo (a Type of Dizziness), Dizziness, Nonvertigo, (DC) Forms: [employer] (Thai) - POA Present On Arrival: None
[2018-10-16 09:29] VITALS: PULSE 51
[2018-10-16] MEDS ORDERED: Sodium Chloride 0.9% 1,000 ML IV STA (09:42)
--- NOTE | 2018-10-16 09:45 | CT ---
Date of service: 10/16/2018 PROCEDURE: CT HEAD WITHOUT CONTRAST. HISTORY: acute dizziness COMPARISON: CT head dated 07/04/2018 TECHNIQUE: Axial computed tomography images were obtained through the head/brain without intravenous contrast. Radiation dose: Total exam DLP = 831.36 mGy-cm. This CT exam was performed using one or more of the following dose reduction techniques: Automated exposure control, adjustment of the mA and/or kV according to patient size, and/or use of iterative reconstruction technique. FINDINGS: HEMORRHAGE: No intracranial hemorrhage. BRAIN: No mass effect or edema. No atrophy or chronic microvascular ischemic changes. VENTRICLES: Unremarkable. No hydrocephalus. CALVARIUM: Unremarkable. PARANASAL SINUSES: Unremarkable as visualized. No significant inflammatory changes. MASTOID AIR CELLS: Unremarkable as visualized. No inflammatory changes. OTHER FINDINGS: None. IMPRESSION: No acute intracranial pathology.
[2018-10-16 09:50] LABS: BASO % 0.7 % (0.0-2.0); EOS # 0.1 K/uL (0.0-0.7); EOS % 1.5 % (0.0-4.0); HEMOGLOBIN 13.3 g/dL (12.0-16.0); LYMPH # 1.9 K/uL (1.0-4.3); LYMPH % 29.5 % (20.0-40.0); MEAN CELL VOLUME 89.4 fl (81.0-99.0); MEAN CORPUSCULAR HGB CONC 32.5 g/dL (33.0-37.0); MEAN PLATELET VOLUME 9.3 fl (7.2-11.7); MONO # 0.4 K/uL (0.0-0.8); MONO % 5.6 % (0.0-10.0); NEUT % 62.7 % (50.0-75.0); RBC 4.57 Mil/uL (3.80-5.20); RED CELL DISTRIBUTION WIDTH 14.3 % (11.5-14.5); WHITE BLOOD COUNT 6.5 K/uL (4.8-10.8)
[2018-10-16 10:19] LABS: ALB/GLOB RATIO 1.6 (1.0-2.1); ALBUMIN 4.6 g/dL (3.5-5.0); ALT/SGPT 23 U/L (9-52); AST/SGOT 19 U/L (14-36); BLOOD UREA NITROGEN 16 mg/dl (7-17); CALCIUM 9.7 mg/dL (8.4-10.2); GFR NON-AFRICAN AMERICAN > 60
[2018-10-16 11:17] VITALS: BP 105/72; RESP 16; TEMP 98.1; O2SAT 99
--- NOTE | 2018-10-17 07:58 | CARD ---
APPROVED REPORT Date of service: 10/16/2018 EKG Measurement Heart [id number] [place] 186P4 [id number] <Conclusion> Sinus bradycardia Low voltage QRS Abnormal ECG
== END 2018-10-16 11:18 | disposition home or self-care (01) ==
LOC: H.ER 08:28
DX: R42 Dizziness and giddiness (principal); E11.9 Type 2 diabetes mellitus without complications; R56.9 Unspecified convulsions; Z86.010 Personal history of colon polyps; Z88.1 Allergy status to other antibiotic agents; Z98.890 Other specified postprocedural states; Z88.5 Allergy status to narcotic agent; E03.9 Hypothyroidism, unspecified
CPT/HCPCS: 70450; 80053; 81025; 82948; 85025; 93005; 96374; 99284; J2765; J7030